=== PATIENT | male | born 1950 | race Caucasian/White ===

== ENCOUNTER 2017-08-05 09:41 | Inpatient (IN) | payer OTHER, BC ==
[~2017-08-05] VITALS: Ht 177.8 cm; Wt 83.4 kg
[~2017-08-05 09:41] MED LIST: ASPIR 8181 M1 PO; CYANOCOBAL1000 MCG/2 SC; CYANOCOBALAM1000 MCG PO; FENOFIBRATE150 MG PO; THERAGRAN1 TABLET PO; VITAMIN B-1100 MG PO
[2017-08-05] MEDS ORDERED: FENOFIBRATE160 M1 PO (14:15)
[2017-08-05] MEDS ORDERED: CITALOPRAM HBR10 MG PO (14:17)
[2017-08-05] MEDS ORDERED: ALENDRONATE SOD70 MG PO (14:18)
[2017-08-05] MEDS ORDERED: VITAMIN D31000 UNIT PO (14:18)
[2017-08-05] MEDS ORDERED: TUMS500 MG PO (14:19)
[2017-08-05 16:02] VITALS: BP 133/60
[2017-08-05 16:54] LABS: HEMATOCRIT 36.5 % (38.0-50.0); MCH 28.6 PG (29.0-34.0); MCHC 32.3 G/DL (30.0-36.0); MCV 88.4 FL (86-99); MEAN PLAT.VOLUME 10.8 uM^3 (9.0-12.4); PLATELET COUNT 247 K/uL (156-360); RBC DIS.WIDTH-SD 42.1 % (39-53); RED BLOOD COUNT 4.13 M/uL (4.00-5.50); WHITE BLOOD COUNT 7.4 K/uL (4.1-10.2)
[2017-08-05 17:20] LABS: ANION GAP 8 MEQ/L (2-14); CHLORIDE 111 MEQ/L (99-109); GFR ESTIMATE (CALCULATED) > 59 mL/min/; GLUCOSE 94 mg/dL (70-99); SAMPLE HEMOLYSIS CHECK 0; SAMPLE ICTERIC CHECK 0; SAMPLE LIPEMIA CHECK 0; SODIUM 144 MEQ/L (136-147); UREA NITROGEN (BUN) 31 mg/dL (9-23)
[2017-08-05 19:44] VITALS: BP 123/64
[2017-08-06 00:01] VITALS: BP 119/63
[2017-08-06 03:38] VITALS: BP 97/55
[2017-08-06 07:58] VITALS: BP 105/57
[2017-08-06 08:56] LABS: MCH 29.7 PG (29.0-34.0); MCHC 33.6 G/DL (30.0-36.0); MCV 88.4 FL (86-99); MEAN PLAT.VOLUME 10.5 uM^3 (9.0-12.4); PLATELET COUNT 255 K/uL (156-360); RBC DIS.WIDTH-CV 13.1 % (11.8-14.6); RBC DIS.WIDTH-SD 42.8 % (39-53); RED BLOOD COUNT 4.41 M/uL (4.00-5.50); WHITE BLOOD COUNT 6.7 K/uL (4.1-10.2)
[2017-08-06 09:16] LABS: ANION GAP 10 MEQ/L (2-14); CHLORIDE 110 MEQ/L (99-109); POTASSIUM 4.2 MEQ/L (3.7-5.4); SAMPLE HEMOLYSIS CHECK 0; SAMPLE ICTERIC CHECK 0; SAMPLE LIPEMIA CHECK 0; SODIUM 144 MEQ/L (136-147)
[2017-08-06 09:21] LABS: GFR ESTIMATE (CALCULATED) > 59 mL/min/; GLUCOSE 128 mg/dL (70-99); UREA NITROGEN (BUN) 22 mg/dL (9-23)
[2017-08-06 12:00] VITALS: BP 108/60
[2017-08-06 15:56] VITALS: BP 116/61
[2017-08-07 00:15] VITALS: BP 114/64
[2017-08-07 05:18] LABS: HEMATOCRIT 36.3 % (38.0-50.0); MCH 28.4 PG (29.0-34.0); MCHC 31.7 G/DL (30.0-36.0); MCV 89.6 FL (86-99); MEAN PLAT.VOLUME 10.6 uM^3 (9.0-12.4); PLATELET COUNT 251 K/uL (156-360); RBC DIS.WIDTH-CV 12.8 % (11.8-14.6); RBC DIS.WIDTH-SD 42.2 % (39-53); RED BLOOD COUNT 4.05 M/uL (4.00-5.50); WHITE BLOOD COUNT 6.4 K/uL (4.1-10.2)
[2017-08-07 05:48] LABS: ANION GAP 5 MEQ/L (2-14); CHLORIDE 110 MEQ/L (99-109); GFR ESTIMATE (CALCULATED) > 59 mL/min/; POTASSIUM 4.2 MEQ/L (3.7-5.4); SAMPLE HEMOLYSIS CHECK 0; SAMPLE ICTERIC CHECK 0; SAMPLE LIPEMIA CHECK 0; SODIUM 142 MEQ/L (136-147); UREA NITROGEN (BUN) 23 mg/dL (9-23)
[2017-08-07 05:50] LABS: GLUCOSE 89 mg/dL (70-99)
[2017-08-07 08:40] VITALS: BP 115/64
[2017-08-07 16:07] VITALS: BP 109/59
[2017-08-07 23:19] VITALS: BP 118/60
[2017-08-08 04:50] VITALS: BP 102/55
[2017-08-08 08:13] VITALS: BP 107/67
[2017-08-08 15:58] VITALS: BP 104/58
[2017-08-08 23:18] VITALS: BP 107/56
[2017-08-09 08:19] VITALS: BP 107/61
[2017-08-09] MEDS ORDERED: CYCLOBENZAPRINE10 MG PO (12:09)
[2017-08-09] MEDS ORDERED: POLYETHYLENE GL17 GM PO (12:10)
[2017-08-09] MEDS ORDERED: HYDROCODON-ACE1 EAC7 PO (12:10)
== END 2017-08-09 13:44 | disposition home health service (06) | DRG 552 ==
LOC: EME 09:41 → EDOF 14:05 → ENRESERV 14:06 → EDOF 14:10 → ENRESERV 14:17 → 3EAST 14:58 → EDOF 15:00 → ENRESERV 15:01 → 3EAST 15:32
PROVIDERS: Hospitalist; Physician Assistant
DX: S32.038A Other fracture of third lumbar vertebra, initial encounter for closed fracture (principal); F05 Delirium due to known physiological condition; G31.85 Corticobasal degeneration; W18.30XA Fall on same level, unspecified, initial encounter; Z66 Do not resuscitate; G62.9 Polyneuropathy, unspecified; F10.20 Alcohol dependence, uncomplicated; E78.1 Pure hyperglyceridemia; E53.8 Deficiency of other specified B group vitamins; G89.11 Acute pain due to trauma; R27.0 Ataxia, unspecified; Z76.89 Persons encountering health services in other specified circumstances; Y92.003 Bedroom of unspecified non-institutional (private) residence as the place of occurrence of the external cause; Z79.82 Long term (current) use of aspirin; Z87.891 Personal history of nicotine dependence; Z91.81 History of falling; Y90.9 Presence of alcohol in blood, level not specified; Z80.6 Family history of leukemia; Z82.0 Family history of epilepsy and other diseases of the nervous system
CPT/HCPCS: 72100; 72131; 80048; 85027; 97530 GP; 99281; 99284; G0378; J1885; J2270; J7030

== ENCOUNTER 2018-03-11 15:09 | Emergency (ER) | payer OTHER, BC ==
[~2018-03-11] VITALS: Ht 172.7 cm; Wt 81.3 kg
[~2018-03-11 15:09] MED LIST changes: +ALENDRONATE SOD70 MG PO; +CITALOPRAM HBR10 MG PO; +CYCLOBENZAPRINE10 MG PO; +FENOFIBRATE160 M1 PO; +HYDROCODON-ACE1 EAC7 PO; +POLYETHYLENE GL17 GM PO; +TUMS500 MG PO; +VITAMIN D31000 UNIT PO
[2018-03-11 16:55] VITALS: BP 125/77
== END 2018-03-11 16:56 | disposition home or self-care (01) ==
LOC: EME 15:09
DX: S60.042A Contusion of left ring finger without damage to nail, initial encounter (principal); S60.052A Contusion of left little finger without damage to nail, initial encounter; W19.XXXA Unspecified fall, initial encounter
CPT/HCPCS: 73130; 99281; 99284

== ENCOUNTER 2018-04-27 12:22 | Emergency (ER) | payer OTHER, BC ==
[~2018-04-27] VITALS: Ht 172.7 cm; Wt 80.6 kg
[2018-04-27 13:28] LABS: HEMATOCRIT 36.3 % (38.0-50.0); HEMOGLOBIN 12.1 G/DL (12.5-16.6); MCH 27.9 PG (29.0-34.0); MCHC 33.3 G/DL (30.0-36.0); MCV 83.8 FL (86-99); PLATELET COUNT 314 K/uL (156-360); RBC DIS.WIDTH-CV 14.6 % (11.8-14.6); RBC DIS.WIDTH-SD 44.8 % (39-53); RED BLOOD COUNT 4.33 M/uL (4.00-5.50); WHITE BLOOD COUNT 14.5 K/uL (4.1-10.2)
[2018-04-27 13:36] LABS: ALBUMIN 4.4 g/dL (3.2-4.8)
[2018-04-27 13:37] LABS: CHLORIDE 107 mEq/L (99-109); POTASSIUM 4.1 mEq/L (3.7-5.4); SODIUM 137 mEq/L (136-147)
[2018-04-27 13:39] LABS: GLUCOSE 99 mg/dL (70-99)
[2018-04-27 13:41] LABS: TOTAL BILIRUBIN 0.3 mg/dL (0.0-1.0)
[2018-04-27 13:42] LABS: ALKALINE PHOSPHATASE 38 IU/L (3-129)
[2018-04-27 13:43] LABS: CREATININE 1.2 mg/dL (0.6-1.3); GFR ESTIMATE (CALCULATED) > 59 mL/min/ (58.99-99999)
[2018-04-27 13:44] LABS: AST (GOT) 25 IU/L (2-34); UREA NITROGEN (BUN) 29 mg/dL (9-23)
[2018-04-27 13:46] LABS: ALT (GPT) 15 IU/L (3-49)
[2018-04-27 13:50] LABS: TROP-I INTERPRETATION NEGATIVE; TROPONIN-I 0.04 ng/mL (0.0-0.30)
[2018-04-27 15:50] LABS: APPEARANCE CLEAR ((CLEAR)); BILIRUBIN NEGATIVE; BLOOD NEGATIVE; COLOR YELLOW ((YELLOW)); GLUCOSE (STRIP) NEGATIVE; KETONES NEGATIVE; LEUKOCYTES NEGATIVE; NITRITE NEGATIVE; PROTEIN (STRIP) NEGATIVE; UCUL ADDED? NO; UROBILINOGEN 0.2 MG/DL (0.2-1.0)
[2018-04-27 17:19] LABS: TROP-I INTERPRETATION NEGATIVE; TROPONIN-I 0.06 ng/mL (0.0-0.30)
[2018-04-27 19:02] VITALS: BP 125/69
== END 2018-04-27 19:02 | disposition home or self-care (01) ==
LOC: EME 12:22
PROVIDERS: Physician Assistant
PROC: 0HQ1XZZ Repair Face Skin, External Approach (ICD-10-PCS; principal; 2018-04-27)
DX: S01.111A Laceration without foreign body of right eyelid and periocular area, initial encounter (principal); S22.31XA Fracture of one rib, right side, initial encounter for closed fracture; S00.83XA Contusion of other part of head, initial encounter; S20.211A Contusion of right front wall of thorax, initial encounter; S50.812A Abrasion of left forearm, initial encounter; S50.312A Abrasion of left elbow, initial encounter; W01.0XXA Fall on same level from slipping, tripping and stumbling without subsequent striking against object, initial encounter; Y92.009 Unspecified place in unspecified non-institutional (private) residence as the place of occurrence of the external cause; M50.31 Other cervical disc degeneration, high cervical region; M48.02 Spinal stenosis, cervical region; I44.0 Atrioventricular block, first degree; R00.0 Tachycardia, unspecified; Z79.82 Long term (current) use of aspirin
CPT/HCPCS: 70450; 71046; 72125; 80053; 81003; 84484; 85027; 93005; 99281; 99284

== ENCOUNTER 2018-05-30 12:31 | Emergency (ER) | payer OTHER, BC ==
[~2018-05-30] VITALS: Ht 170.2 cm; Wt 80.9 kg
[2018-05-30 12:36] VITALS: BP 123/73
[2018-05-30] MEDS ORDERED: MOBIC7.5 MG PO (14:25)
[2018-05-30] MEDS ORDERED: ULTRAM50 MG PO (14:25)
== END 2018-05-30 15:17 | disposition home or self-care (01) ==
LOC: EME 12:31
DX: S49.91XA Unspecified injury of right shoulder and upper arm, initial encounter (principal); G31.85 Corticobasal degeneration; W19.XXXA Unspecified fall, initial encounter; Z91.81 History of falling; Z79.82 Long term (current) use of aspirin
CPT/HCPCS: 73030; 99281; 99284